=== PATIENT | male | born 1960 | race Caucasian/White ===

== ENCOUNTER 2019-07-04 08:37 | Emergency (ER) | payer BC ==
[2019-07-04 08:51] LABS: #Basophils 0.2 thou/uL (0.0-0.2); #Eosinphils 0.4 thou/uL (0.0-0.7); #Lymphocytes 2.8 thou/uL (1.20-3.40); #Monocytes 0.6 thou/uL (0.11-0.59); #Neutrophils 3.3 thou/uL (1.40-6.50); %Basophils 2.1 % (0.0-1.0); %Eosinophils 5.1 % (0.0-10.0); %Lymphocytes 38.2 % (21.0-51.0); %Monocytes 8.5 % (0.0-10.0); %Neutrophils 46.1 % (42.0-75.0); Hemoglobin 13.9 g/dL (14.0-18.0); Mean Corpuscular HGB CONC 31.6 g/dL (32.0-36.0); Mean Corpuscular Hemoglobin 28.6 pg (27.0-31.0); Mean Corpuscular Volume 90.3 fL (78.0-98.0); Mean Platelet Volume 5.9 fL (7.4-10.4); Platelet Count 212 thou/uL (130-400); RBC Distribution Width 11.4 % (11.5-14.5); Red Blood Cell (RBC) Count 4.87 mill/uL (4.70-6.10); White Blood Cell (WBC) Count 7.2 thou/uL (4.8-10.8)
[2019-07-04 08:56] LABS: INR-International Normal Ratio 0.9; PTT 26.7 SEC (22.9-36.1); Prothrombin Time 12.2 SEC (12.0-14.7)
[2019-07-04 09:09] LABS: CKMB 1.8 ng/mL (0-6.6); Troponin I Less than 0.010 ng/mL (< 0.028)
[2019-07-04 09:15] LABS: ALT (SGPT) 25 U/L (8-55); AST (SGOT) 19 U/L (5-34); Albumin 4.1 g/dL (3.5-5.0); Alkaline Phosphatase 85 U/L (40-110); Anion Gap 14 mmol/L (10-20); BUN (Urea Nitrogen) 13 mg/dL (8.4-25.7); Bilirubin, Total 0.8 mg/dL (0.2-1.2); Calc. Creatinine Clearance 0 mL/min (70-130); Calcium 8.6 mg/dL (7.8-10.44); Carbon Dioxide 21 mmol/L (22-29); Chloride 110 mmol/L (98-107); Estimated GFR-MDRD 81; Globulin 2.6 g/dL (2.4-3.5); Glucose 160 mg/dL (70-105); Potassium 3.7 mmol/L (3.5-5.1); Protein, Total 6.7 g/dL (6.0-8.3); Sodium 141 mmol/L (136-145)
[2019-07-04] MEDS ORDERED: Iopamidol 370 76% 150 ML VIAL FS ONE (09:31)
--- NOTE | 2019-07-04 09:38 | CT ---
CT angiogram of head and neck performed with intravenous contrast enhancement with 3-D reconstruction s HISTORY: Possible stroke right-sided peripheral vision defect. COMPARISON: Noncontrast CT examination done earlier today. FINDINGS: The lung apices are clear. Thyroid gland appears unremarkable. Vocal cord region is normal there is some mild symmetric bilateral jugular chain lymph nodes probably reactive. The parotid and submandibular glands appear unremarkable. Parapharyngeal spaces appear clear. There is a separate origin of left common carotid artery from the aortic arch the left vertebral rupinder ry also is incidentally noted to arise from the aortic arch no evidence of subclavian stenosis. The right common internal and external carotid arteries show no significant areas of narrowing. The left carotid system is also unremarkable without evidence of stenosis of the internal carotid. The vertebral arteries are codominant. Intracranially the cavernous portions of both internal carotid arteries are normal. There is no signi ficant stenosis of the anterior or middle cerebral arteries or the branches. No evidence of any intraluminal thrombus. The basilar artery is normal in appearance. Posterior cerebral arteries appear unremarkable. An old a ppearing loss left occipital infarct is incidentally noted. IMPRESSION: 1. No evidence of any significant stenosis of either internal carotid artery Nascet criteria. 2. Old left occipital infarct.
--- NOTE | 2019-07-04 09:52 | CT ---
CT BRAIN WITHOUT CONTRAST: Date: 07/04/19 HISTORY: Right-sided depth perception deficit. FINDINGS: There is an old infarct in the left occipital lobe. No evidence of acute infarct, hemorrhage, midline shift, or abnormal extra-axial fluid collections are seen. The ventricular size is appropriate and t he basilar cisterns are patent. The bony calvarium is intact. The visualized paranasal sinuses and ma stoid air cells are well aerated. IMPRESSION: No CT evidence of acute intracranial process. Discussed over the telephone with ER physician, Dr. Jose Karimi, at 0905 hours. CODE CR. POS: [facility]
== END 2019-07-04 09:51 | disposition short-term general hospital (02) ==
LOC: MADERS 08:37
DX: H54.61 Unqualified visual loss, right eye, normal vision left eye (principal); I10 Essential (primary) hypertension; Z86.73 Personal history of transient ischemic attack (TIA), and cerebral infarction without residual deficits
CPT/HCPCS: 36416; 70450; 70496; 70498; 80053; 82553; 84484; 85025; 85610; 85730; 93005